=== PATIENT | male | born 1970 | race Caucasian/White ===

== ENCOUNTER 2017-02-19 09:10 | Inpatient (IN) | payer OTHER ==
[~2017-02-19] VITALS: Ht 182.9 cm; Wt 122.5 kg
[2017-02-19] MEDS ORDERED: LORAZEPAM 2MG/ML CPJ IV STA (09:37)
[2017-02-19] MEDS ORDERED: SODIUM CHLORIDE 0.9% 1,000 ML IV ONE (09:37)
[2017-02-19] MEDS ORDERED: PANTOPRAZOLE SODIUM 40 MG/VIAL IV ONE (09:45)
[2017-02-19] MEDS ORDERED: TETANUS, DIPHTHERIA, PERTUSSIS VAC/PF 0.5ML (>7YR OLD) IM ONE (09:45)
[2017-02-19 10:05] LABS: BASOPHILS % 2.1 % (0.0-2.0); EOSINOPHILS % 0.2 % (0.0-5.0); HEMATOCRIT. 26.1 % (42.0-52.0); HEMOGLOBIN. 8.8 g/dL (14.0-18.0); LYMPHOCYTES % 10.5 % (20.0-50.0); MEAN CORPUSCULAR HEMOGLOBIN 32.1 pg (28.0-32.0); MEAN CORPUSCULAR VOLUME 94.8 fL (80.0-94.0); MONOCYTES % 14.1 % (2.0-8.0); NEUTROPHILS % 73.1 % (40.0-76.0); PLATELET 193 x1000/uL (130-400); RED BLOOD CELL COUNT 2.75 mill/uL (4.7-6.1); RED CELL DISTRIBUTION WIDTH 14.6 % (11.6-14.6)
[2017-02-19 10:07] LABS: INR 1.1; PROTHROMBIN TIME 11.9 sec (9.4-11.6)
[2017-02-19 10:09] LABS: AMMONIA 21 uMol/L (<32)
[2017-02-19 10:15] LABS: CARBON DIOXIDE 29 mEq/L (21-32); CHLORIDE 99 mEq/L (98-107); ETHANOL BLOOD 150 mg/dL; TROPONIN I < 0.02 ng/mL (0.00-0.04)
[2017-02-19] MEDS ORDERED: DOCUSATE SODIUM 100MG CAPSULE PO PRN (15:00)
[2017-02-19] MEDS ORDERED: KETOROLAC 15MG/ML VIAL IV PRN (15:00)
[2017-02-19] MEDS ORDERED: ACETAMINOPHEN 325MG TABLET PO PRN (15:00)
[2017-02-19] MEDS ORDERED: IPRATROPIUM/ALBUTEROL 0.5-3(2.5)MG/3ML NEB INH PRN (15:00)
[2017-02-19] MEDS ORDERED: ONDANSETRON HCL 4MG/2ML VIAL IV PRN (15:00)
[2017-02-19] MEDS ORDERED: NA PHOS,M-B/NA PHOS,DI-BA ENEMA 118ML PR PRN (15:00)
[2017-02-19] MEDS ORDERED: MAGNESIUM/ALUMINUM HYDROXIDE/SIMETHICONE 30ML UDC PO PRN (15:00)
[2017-02-19] MEDS ORDERED: CLONIDINE 0.1MG TABLET PO PRN (15:00)
[2017-02-19] MEDS ORDERED: GUAIFENESIN 200MG/10ML SUGAR FREE UDC PO PRN (15:00)
[2017-02-19] MEDS ORDERED: DIPHENHYDRAMINE 50MG/ML VIAL IV PRN (15:00)
[2017-02-19 16:00] VITALS: BP 93/56
[2017-02-19] MEDS ORDERED: ENOXAPARIN 40MG/0.4ML SYR SUBCUT SCH (16:30)
[2017-02-19 16:58] VITALS: BP 99/61
[2017-02-19] MEDS: LORAZEPAM 2MG/ML CPJ IV PRN ×2 (17:30→23:07)
[2017-02-19] MEDS ORDERED: TRAZ-129 PO (17:37)
[2017-02-19] MEDS ORDERED: METO50TA5 PO (17:37)
[2017-02-19] MEDS ORDERED: LOSA25TA12 PO (17:37)
[2017-02-19] MEDS ORDERED: THIA100T13 PO (17:37)
[2017-02-19] MEDS ORDERED: MULT-1146 PO (17:37)
[2017-02-19] MEDS ORDERED: AMLO10TA80 PO (17:37)
[2017-02-19] MEDS ORDERED: FLUO20CA33 PO (17:37)
[2017-02-19] MEDS ORDERED: MVI, ADULT NO.1 10 ML, FOLIC ACID 1 MG, THIAMINE HCL 100 MG in SODIUM CHLORIDE 0.9% 1,0... IV SCH ×4 (18:00)
[2017-02-19] MEDS ORDERED: PNEUMOCOCCAL 23-VAL P-SAC VAC 0.5 ML IM ONE (19:15)
[2017-02-19] MEDS: FAMOTIDINE 20MG/2ML VIAL IV SCH (21:05)
[2017-02-19] MEDS: CHLORDIAZEPOXIDE 5 MG CAPSULE PO SCH (21:05)
[2017-02-19 23:32] VITALS: BP 117/67
[2017-02-20 04:00] VITALS: BP 140/92
[2017-02-20] MEDS: CHLORDIAZEPOXIDE 5 MG CAPSULE PO SCH (05:51)
[2017-02-20] MEDS: FAMOTIDINE 20MG/2ML VIAL IV SCH (08:23)
[2017-02-20] MEDS ORDERED: CALCIUM CARBONATE 1250MG TABLET (500MG ELEMENTAL CALCIUM) PO SCH (09:00)
[2017-02-20 11:22] VITALS: BP 120/70
== END 2017-02-20 12:10 | disposition home or self-care (01) | DRG 897 ==
LOC: ER 09:20 → 8WST 11:52 → ENRESERV 14:55
PROVIDERS: ADMIT Internal Medicine; ATTEND Internal Medicine
DX: F10.239 Alcohol dependence with withdrawal, unspecified (principal); E44.1 Mild protein-calorie malnutrition; S09.90XA Unspecified injury of head, initial encounter; H92.21 Otorrhagia, right ear; F41.9 Anxiety disorder, unspecified; D64.9 Anemia, unspecified; F43.10 Post-traumatic stress disorder, unspecified; Z68.36 Body mass index [BMI] 36.0-36.9, adult; Z23 Encounter for immunization
CPT/HCPCS: 36415; 70450; 70486; 71010; 80053; 80307; 80329; 82140; 82962; 83036; 83690; 83880; 84443; 84484; 85025; 85610; 85730; 90715; 90732; 93005; 96361; 96372; 96374; 96375; 99285; C9113; G0482; J1650; J2060; J3411; J3490; J7030

== ENCOUNTER 2019-02-06 12:45 | Emergency (ER) | payer MEDICAID, OTHER ==
[~2019-02-06] VITALS: Ht 182.9 cm; Wt 111.0 kg
[~2019-02-06 12:45] MED LIST: AMLO10TA80 PO; FERR220S16 MT; FLUO20CA33 PO; LOSA25TA26 PO; METO-539 PO; MULT-1146 PO; THIA100T13 PO; TRAZ-251 PO
[2019-02-06] MEDS ORDERED: KETOROLAC 15MG/ML VIAL IV ONE (13:45)
[2019-02-06] MEDS ORDERED: FOLIC ACID 1 MG, THIAMINE HCL 100 MG, MVI, ADULT NO.1 10 ML in DEXTROSE 5% WATER 1,000 ML IV ONE ×4 (13:45)
[2019-02-06 14:03] LABS: HEMATOCRIT. 33.1 % (42.0-52.0); HEMOGLOBIN. 11.4 g/dL (14.0-18.0); MEAN CORPUSCULAR HEMOGLOBIN 32.1 pg (28.0-32.0); MEAN CORPUSCULAR VOLUME 93.2 fL (80.0-94.0); MEAN PLATELET VOLUME 8.4 fl (7.4-10.4); PLATELET 588 x1000/uL (130-400); RED BLOOD CELL COUNT 3.55 mill/uL (4.7-6.1); RED CELL DISTRIBUTION WIDTH 18.3 % (11.6-14.6)
[2019-02-06 14:10] LABS: CHLORIDE 104 mEq/L (98-107)
[2019-02-06 14:30] LABS: PLATELET ESTIMATE MARKEDLY INCREASED
[2019-02-06 14:36] LABS: ETHANOL BLOOD 454 mg/dL
[2019-02-06] MEDS ORDERED: ACETAMINOPHEN 325MG TABLET PO NR (15:15)
[2019-02-06] MEDS ORDERED: LIDOCAINE HCL/PF 1% 10 MG/ML 5ML VIAL INL NR (15:15)
[2019-02-06] MEDS ORDERED: KETOROLAC 15MG/ML VIAL IV NR (15:15)
[2019-02-06 17:30] VITALS: BP 138/88
[2019-02-06 17:47] LABS: CLARITY URINE CLEAR (CLEAR); COLOR URINE DARK YELLOW (YELLOW); KETONES URINE NEGATIVE (NEGATIVE); LEUKOCYTE ESTERASE URINE NEGATIVE (NEGATIVE); NITRITE URINE NEGATIVE (NEGATIVE); OCCULT BLOOD URINE 3+ (NEGATIVE); PROTEIN URINE 3+ (NEGATIVE); SPECIFIC GRAVITY URINE 1.018 (1.005-1.030)
[2019-02-06 18:21] LABS: *AMPHETAMINES SCREEN URINE NEGATIVE (NEGATIVE); *BARBITURATES SCREEN URINE NEGATIVE (NEGATIVE); *BENZODIAZEPINES SCREEN URINE PRESUMTIVE POSITIVE (NEGATIVE); *COCAINE SCREEN URINE NEGATIVE (NEGATIVE); METHADONE URINE SCREEN NEGATIVE (NEGATIVE)
[2019-02-06 18:22] LABS: CANNABINOID URINE SCREEN NEGATIVE (NEGATIVE); OPIATES URINE SCREEN NEGATIVE (NEGATIVE); PHENCYCLIDINE URINE SCREEN NEGATIVE (NEGATIVE)
== END 2019-02-07 08:30 | disposition home or self-care (01) ==
LOC: ER 12:45
DX: S63.292A Dislocation of distal interphalangeal joint of right middle finger, initial encounter (principal); F10.229 Alcohol dependence with intoxication, unspecified; K70.9 Alcoholic liver disease, unspecified; I10 Essential (primary) hypertension; Y90.8 Blood alcohol level of 240 mg/100 ml or more; M54.5 Low back pain; F13.10 Sedative, hypnotic or anxiolytic abuse, uncomplicated; G40.909 Epilepsy, unspecified, not intractable, without status epilepticus; D47.3 Essential (hemorrhagic) thrombocythemia; R74.0 Nonspecific elevation of levels of transaminase and lactic acid dehydrogenase [LDH]; E80.6 Other disorders of bilirubin metabolism; D64.9 Anemia, unspecified; W01.0XXA Fall on same level from slipping, tripping and stumbling without subsequent striking against object, initial encounter; Y93.89 Activity, other specified; Y92.018 Other place in single-family (private) house as the place of occurrence of the external cause
CPT/HCPCS: 26770; 36415; 73130; 80053; 80305; 80320; 81003; 85025; 96365; 96375; 99284; J1885; J3411; J3490; J7070; G0480

== ENCOUNTER 2019-03-09 13:01 | Emergency (ER) | payer MEDICAID, OTHER ==
[~2019-03-09] VITALS: Ht 170.2 cm; Wt 80.0 kg
[2019-03-09 13:05] VITALS: BP 138/98
== END 2019-03-09 16:24 | disposition left against medical advice (07) ==
LOC: ER 13:01
DX: F10.129 Alcohol abuse with intoxication, unspecified (principal); Y90.9 Presence of alcohol in blood, level not specified; I10 Essential (primary) hypertension; G40.909 Epilepsy, unspecified, not intractable, without status epilepticus
CPT/HCPCS: 99283

== ENCOUNTER 2019-12-01 15:09 | Emergency (ER) | payer MEDICAID, OTHER ==
[~2019-12-01] VITALS: Ht 182.9 cm; Wt 138.0 kg
[~2019-12-01 15:09] MED LIST changes: -FERR220S16 MT; +MELA1TAB9 PO; -METO-539 PO
[2019-12-01] MEDS ORDERED: LORAZEPAM 2MG/ML CPJ IV ONE (15:45)
[2019-12-01] MEDS ORDERED: CYANOCOBALAMIN 1000MCG/ML VIAL IM ONE (15:45)
[2019-12-01] MEDS ORDERED: SODIUM CHLORIDE 0.9% 1,000 ML IV ONE (15:45)
[2019-12-01 16:16] LABS: HEMATOCRIT. 40.5 % (42.0-52.0); HEMOGLOBIN. 13.7 g/dL (14.0-18.0); MEAN CORPUSCULAR HEMOGLOBIN 30.4 pg (28.0-32.0); MEAN CORPUSCULAR VOLUME 89.7 fL (80.0-94.0); MEAN PLATELET VOLUME 8.5 fl (7.4-10.4); PLATELET 63 x1000/uL (130-400); RED BLOOD CELL COUNT 4.52 mill/uL (4.7-6.1); RED CELL DISTRIBUTION WIDTH 16.7 % (11.6-14.6)
[2019-12-01 16:25] LABS: CHLORIDE 85 mEq/L (98-107)
[2019-12-01 16:29] LABS: ETHANOL BLOOD 35 mg/dL
[2019-12-01] MEDS ORDERED: CHLORDIAZEPOXIDE 5 MG CAPSULE PO ONE (17:30)
[2019-12-01] MEDS ORDERED: MORPHINE SULFATE 2 MG/ML CPJ (NOT FOR IM USE) IV ONE (17:30)
[2019-12-01 17:35] LABS: PLATELET ESTIMATE DECREASED
[2019-12-01] MEDS ORDERED: ACETAMINOPHEN 325MG TABLET PO ONE (20:45)
[2019-12-01 21:00] VITALS: BP 161/94
[2019-12-01] MEDS ORDERED: POTASSIUM CHLORIDE 20MEQ TABLET SR PO ONE (21:00)
== END 2019-12-01 21:06 | disposition home or self-care (01) ==
LOC: ER 15:09
DX: S22.41XA Multiple fractures of ribs, right side, initial encounter for closed fracture (principal); X58.XXXA Exposure to other specified factors, initial encounter; Y93.89 Activity, other specified; Y92.89 Other specified places as the place of occurrence of the external cause; Y99.8 Other external cause status; F41.9 Anxiety disorder, unspecified; D64.9 Anemia, unspecified; R06.02 Shortness of breath; R51 Headache; E86.0 Dehydration; K70.10 Alcoholic hepatitis without ascites; E87.6 Hypokalemia; I10 Essential (primary) hypertension
CPT/HCPCS: 36415; 70450; 71101; 80053; 80320; 83880; 84484; 85025; 93005; 96361; 96372; 96374; 96375; 99285; J2060; J2270; J3420; J7030; G0480

== ENCOUNTER 2020-04-23 16:19 | Emergency (ER) | payer OTHER ==
[~2020-04-23] VITALS: Ht 177.8 cm; Wt 111.0 kg
[2020-04-23 19:56] LABS: CHLORIDE 102 mEq/L (98-107)
[2020-04-23 19:57] LABS: EOSINOPHILS % 0.9 % (0.0-5.0); HEMATOCRIT. 39.1 % (42.0-52.0); LYMPHOCYTES % 21.8 % (20.0-50.0); MEAN CORPUSCULAR HEMOGLOBIN 28.9 pg (28.0-32.0); MEAN CORPUSCULAR VOLUME 86.7 fL (80.0-94.0); MEAN PLATELET VOLUME 7.4 fl (7.4-10.4); MONOCYTES % 5.4 % (2.0-8.0); NEUTROPHILS % 69.9 % (40.0-76.0); PLATELET 141 x1000/uL (130-400); RED BLOOD CELL COUNT 4.51 mill/uL (4.7-6.1); RED CELL DISTRIBUTION WIDTH 16.9 % (11.6-14.6)
[2020-04-23 20:13] LABS: ETHANOL BLOOD 404 mg/dL
[2020-04-23] MEDS ORDERED: LORAZEPAM 2MG/ML CPJ IM PRN (20:30)
[2020-04-23] MEDS ORDERED: DIPHENHYDRAMINE 50MG/ML VIAL IM PRN (20:45)
[2020-04-23] MEDS ORDERED: HALOPERIDOL LACTATE 5MG/ML VIAL IM ONE (20:45)
[2020-04-23 20:55] LABS: CLARITY URINE CLEAR (CLEAR); COLOR URINE DARK YELLOW (YELLOW); KETONES URINE NEGATIVE (NEGATIVE); LEUKOCYTE ESTERASE URINE NEGATIVE (NEGATIVE); NITRITE URINE NEGATIVE (NEGATIVE); OCCULT BLOOD URINE 1+ (NEGATIVE); PROTEIN URINE 4+ (NEGATIVE)
[2020-04-23 21:10] LABS: *AMPHETAMINES SCREEN URINE NEGATIVE (NEGATIVE); *BARBITURATES SCREEN URINE NEGATIVE (NEGATIVE); *BENZODIAZEPINES SCREEN URINE NEGATIVE (NEGATIVE); *COCAINE SCREEN URINE NEGATIVE (NEGATIVE)
[2020-04-23 21:11] LABS: CANNABINOID URINE SCREEN NEGATIVE (NEGATIVE); METHADONE URINE SCREEN NEGATIVE (NEGATIVE); OPIATES URINE SCREEN NEGATIVE (NEGATIVE); PHENCYCLIDINE URINE SCREEN NEGATIVE (NEGATIVE)
[2020-04-24] MEDS ORDERED: HALOPERIDOL LACTATE 5MG/ML VIAL IM ONE (00:30)
[2020-04-24] MEDS ORDERED: ONDANSETRON HCL 4MG/2ML INJ IM ONE (00:30)
[2020-04-24 03:00] VITALS: BP 134/83
== END 2020-04-24 03:43 | disposition home or self-care (01) ==
LOC: ER 16:19
DX: F10.129 Alcohol abuse with intoxication, unspecified (principal); R55 Syncope and collapse; I10 Essential (primary) hypertension; Z79.899 Other long term (current) drug therapy; Z98.890 Other specified postprocedural states; Y90.8 Blood alcohol level of 240 mg/100 ml or more
CPT/HCPCS: 36415; 70450; 71045; 80053; 80305; 80320; 81003; 83880; 84484; 85025; 93005; 96372; 99285; J1200; J1630; J2060; J2405; G0480

== ENCOUNTER 2021-10-16 15:39 | Emergency (ER) | payer OTHER ==
[~2021-10-16] VITALS: Ht 185.4 cm; Wt 87.0 kg
[~2021-10-16 15:39] MED LIST changes: +MELA1TAB51 PO; -MELA1TAB9 PO
[2021-10-16] MEDS ORDERED: TETANUS, DIPHTHERIA, PERTUSSIS VAC/PF 0.5ML (>10YR OLD) IM ONE (16:30)
[2021-10-16 18:35] LABS: BASOPHILS % 0.4 % (0.0-2.0); EOSINOPHILS % 0.1 % (0.0-5.0); HEMATOCRIT. 35.3 % (42.0-52.0); HEMOGLOBIN. 11.6 g/dL (14.0-18.0); LYMPHOCYTES % 13.3 % (20.0-50.0); MEAN CORPUSCULAR HEMOGLOBIN 28.3 pg (28.0-32.0); MEAN CORPUSCULAR VOLUME 85.8 fL (80.0-94.0); MEAN PLATELET VOLUME 7.8 fl (7.4-10.4); MONOCYTES % 5.5 % (2.0-8.0); NEUTROPHILS % 80.7 % (40.0-76.0); PLATELET 148 x1000/uL (130-400); RED BLOOD CELL COUNT 4.11 mill/uL (4.7-6.1); RED CELL DISTRIBUTION WIDTH 15.8 % (11.6-14.6)
[2021-10-16 18:48] LABS: CHLORIDE 104 mEq/L (98-107)
[2021-10-16 19:11] LABS: ETHANOL BLOOD 294 mg/dL
[2021-10-16] MEDS ORDERED: POTA20TA82 MT (19:48)
[2021-10-16] MEDS ORDERED: POTASSIUM CHLORIDE 20MEQ TABLET SR PO SCH (20:00)
[2021-10-16 20:58] LABS: CLARITY URINE CLEAR (CLEAR); COLOR URINE DARK YELLOW (YELLOW); KETONES URINE TRACE (NEGATIVE); LEUKOCYTE ESTERASE URINE NEGATIVE (NEGATIVE); NITRITE URINE NEGATIVE (NEGATIVE); OCCULT BLOOD URINE 2+ (NEGATIVE); PH URINE 5.5 (4.5-8.0); PROTEIN URINE 4+ (NEGATIVE)
[2021-10-16] MEDS ORDERED: LORAZEPAM 2MG/ML CPJ IV ONE ×2 (21:00→22:15)
[2021-10-16 21:13] LABS: *AMPHETAMINES SCREEN URINE NEGATIVE (NEGATIVE); *BARBITURATES SCREEN URINE NEGATIVE (NEGATIVE); *BENZODIAZEPINES SCREEN URINE NEGATIVE (NEGATIVE); *COCAINE SCREEN URINE NEGATIVE (NEGATIVE); CANNABINOID URINE SCREEN NEGATIVE (NEGATIVE); METHADONE URINE SCREEN NEGATIVE (NEGATIVE); OPIATES URINE SCREEN NEGATIVE (NEGATIVE); PHENCYCLIDINE URINE SCREEN NEGATIVE (NEGATIVE)
[2021-10-16] MEDS ORDERED: IBUP-2028 MT (23:33)
[2021-10-17 04:26] VITALS: BP 156/92
== END 2021-10-17 04:27 | disposition home or self-care (01) ==
LOC: ER 15:39
DX: G92.9 Unspecified toxic encephalopathy (principal); D64.9 Anemia, unspecified; R74.01 Elevation of levels of liver transaminase levels; E87.6 Hypokalemia; F10.229 Alcohol dependence with intoxication, unspecified; Y90.0 Blood alcohol level of less than 20 mg/100 ml; F41.9 Anxiety disorder, unspecified; K59.00 Constipation, unspecified; I10 Essential (primary) hypertension
CPT/HCPCS: 36415; 70450; 70486; 72125; 80053; 80305; 80307; 80320; 80329; 81003; 85025; 90471; 90715; 96374; 96376; 99285; 99406; J2060; G0480

== ENCOUNTER 2023-06-23 16:54 | Emergency (ER) | payer OTHER ==
[~2023-06-23] VITALS: Ht 180.3 cm; Wt 122.0 kg
[~2023-06-23 16:54] MED LIST changes: +IBUP-2028 MT; +POTA-204 MT
[2023-06-23] MEDS ORDERED: ONDANSETRON HCL 4MG/2ML INJ IV STA (16:57)
[2023-06-23] MEDS ORDERED: SODIUM CHLORIDE 0.9% 1,000 ML IV ONE (17:00)
[2023-06-23 17:01] VITALS: BP 123/82; PULSE 98; RESP 18; TEMP 98; O2SAT 97
[2023-06-23 17:58] LABS: BASOPHILS % 0.5 % (0.0-2.0); EOSINOPHILS % 0.2 % (0.0-5.0); HEMATOCRIT. 27.7 % (42.0-52.0); HEMOGLOBIN. 8.8 g/dL (14.0-18.0); LYMPHOCYTES % 15.4 % (20.0-50.0); MEAN CORPUSCULAR HEMOGLOBIN 26.5 pg (28.0-32.0); MEAN CORPUSCULAR HGB CONC 31.7 g/dL (31.0-37.0); MEAN CORPUSCULAR VOLUME 83.6 fL (80.0-94.0); MEAN PLATELET VOLUME 8.3 fl (7.4-10.4); MONOCYTES % 8.1 % (2.0-8.0); NEUTROPHILS % 75.8 % (40.0-76.0); RED BLOOD CELL COUNT 3.32 mill/uL (4.7-6.1); WHITE BLOOD COUNT 3.9 x1000/uL (4.5-11.0)
[2023-06-23 18:05] LABS: DIFFERENTIAL COMMENT 1
[2023-06-23 18:08] LABS: INR 1.1; PROTHROMBIN TIME 11.8 sec (9.6-11.0)
[2023-06-23 18:21] LABS: ALANINE AMINOTRANSFERASE 98 IU/L (10-49); ALBUMIN 4.8 g/dL (3.2-4.8); ASPARTATE AMINOTRANSFERASE 178 IU/L (<34); BILIRUBIN TOTAL 1.2 mg/dL (0.1-1.0); CALCIUM 9.1 mg/dL (8.7-10.4); CARBON DIOXIDE 24 mEq/L (21-32); CHLORIDE 101 mEq/L (98-107); CREATININE 0.9 mg/dL (0.6-1.3); ETHANOL BLOOD 292 mg/dL (<10); GLUCOSE 122 mg/dL (70-105); POTASSIUM 3.7 mEq/L (3.5-5.1); PROTEIN TOTAL 8.3 g/dL (6.0-8.3); SODIUM 138 mEq/L (136-145); UREA NITROGEN BLOOD 13 mg/dL (9-23)
[2023-06-23] MEDS ORDERED: ONDANSETRON 4MG ODT PO ONE (20:15)
[2023-06-24 14:36] LABS: PLATELET 40 x1000/uL (130-400)
== END 2023-06-23 21:10 | disposition home or self-care (01) ==
LOC: ER 16:54
DX: F10.129 Alcohol abuse with intoxication, unspecified (principal); F41.9 Anxiety disorder, unspecified; I10 Essential (primary) hypertension; Z98.890 Other specified postprocedural states; Y90.8 Blood alcohol level of 240 mg/100 ml or more
CPT/HCPCS: 80053; 80320; 83690; 85025; 85610; 36415; 96361; 96374; 99283; Q0162; J2405; J7030; G0480